=== PATIENT | female | born 1965 | race Caucasian/White ===

== ENCOUNTER 2020-11-25 18:21 | Emergency (ER) | payer MEDICAID ==
[~2020-11-25] VITALS: Ht 146.1 cm; Wt 56.2 kg
[2020-11-25 18:26] VITALS: BP 192/130
--- NOTE | 2020-11-25 18:44 | NUR ---
PATIENT AMBULATED TO BED 8.
--- NOTE | 2020-11-25 18:47 | NUR ---
Dr. George is evaluating the patient at bedside.
--- NOTE | 2020-11-25 18:50 | NUR ---
55 y/o F coming in from home with c/c abdominal pain x 3 days. Patient presents A&Ox4, ambulatory and Telugu speaking; states pain 8/10, sharp to her RLQ region. Patient states it radiates to the right flank. Pt denies takin any medications prior to arrival. Pt states associated nausea, chills and urinary frequency. Pt denies all other urinary complaints, chest pain, shortness of breath, dizziness, headache, blurry vision. Pt placed onto classroom monitor. Respirations even/unlabored; lung sounds CTA. Bed locked in lowest position, side rails x 1, call light in reach. PMH: HTN, DM, CVA x 1 year ago Meds: NKA Sx: denies
[2020-11-25] MEDS ORDERED: MORPHINE SULFATE 2 MG/ML SYR IVP ONE (18:55)
[2020-11-25] MEDS ORDERED: cefTRIAXone 1,000 MG in DEXT 5% MINI-BAG PLUS 50 ML IV ONE (18:55)
[2020-11-25] MEDS ORDERED: ONDANSETRON 4 MG/2 ML VIAL IVP ONE (18:55)
[2020-11-25] MEDS: NACL 0.9% 1,000 ML IV SCH ×2 (19:05→19:07)
--- NOTE | 2020-11-25 19:06 | NUR ---
Blood sample and cultures collected, handed to obi Bush tech in ER bedside.
[2020-11-25] MEDS ORDERED: cefTRIAXone 1,000 MG VIAL ONE (19:07)
--- NOTE | 2020-11-25 19:15 | NUR ---
Report and transfer of care given to YESSI Wright.
[2020-11-25 19:22] LABS: BASOPHILS % (AUTO) 0.7 % (0.0-2.0); EOSINOPHILS # (AUTO) 0.3 K/uL (0-0.4); EOSINOPHILS % (AUTO) 4.9 % (0.0-4.0); HEMATOCRIT 36.2 % (36-48); HEMOGLOBIN 12.6 g/dL (12.0-16.0); LYMPHOCYTES # (AUTO) 2.8 K/uL (2.5-16.5); LYMPHOCYTES % (AUTO) 43.5 % (20.5-51.1); MEAN CORPUSCULAR HEMOGLOBIN 30 pg (27-31); MEAN CORPUSCULAR HGB CONC 35 g/dL (33-37); MEAN CORPUSCULAR VOLUME 85.3 fL (80-94); MONOCYTES # (AUTO) 0.6 K/uL (0.8-1.0); MONOCYTES % (AUTO) 9.2 % (1.7-9.3); NEUTROPHILS # (AUTO) 2.7 K/uL (1.8-7.7); NEUTROPHILS % (AUTO) 41.7 % (42.2-75.2); PLATELET COUNT (AUTO) 314 K/uL (140-450); RED BLOOD CELL COUNT(AUTO) 4.25 MIL/uL (4.20-5.40); WHITE BLOOD COUNT (AUTO) 6.5 K/uL (4.8-10.8)
--- NOTE | 2020-11-25 19:25 | NUR ---
Signature obtained for consent form. CT made aware.
[2020-11-25 19:30] LABS: APPEARANCE,URINE CLEAR (CLEAR); BILIRUBIN,URINE NEGATIVE (NEGATIVE); BLOOD, URINE 2+ (NEGATIVE); COLOR,URINE YELLOW (YELLOW); LEUKOCYTE ESTERASE ,URINE TRACE (NEGATIVE); NITRITE, URINE POSITIVE (NEGATIVE); UGLUCOSE 3+ (NEGATIVE)
[2020-11-25 19:41] LABS: ALBUMIN 3.4 g/dL (3.4-5.0); CARBON DIOXIDE 30.9 mmol/L (21-32); CREATININE 1.1 mg/dL (0.6-1.3); POTASSIUM 3.9 mmol/L (3.5-5.1); TOTAL BILIRUBIN 0.4 mg/dL (0.0-1.0)
[2020-11-25 19:45] LABS: RBC,URINE 20-50 /HPF (0-5)
[2020-11-25] MEDS ORDERED: ONDA4ODT2 PO (21:37)
[2020-11-25] MEDS ORDERED: CEPH500C16 PO (21:37)
[2020-11-25 22:05] VITALS: BP 175/87
--- NOTE | 2020-11-25 22:05 | NUR ---
Patient discharged with v/s stable. Written and verbal after care instructions given and explained. Patient alert, oriented and verbalized understanding of instructions. Ambulatory with steady gait. All questions addressed prior to discharge. ID band removed. Patient advised to follow up with PMD. Rx of KEFLEX & ZOFRAN given. Patient educated on indication of medication including possible reaction and side effects. Opportunity to ask questions provided and answered.
--- NOTE | 2020-12-02 09:26 | NUR ---
LATE ENTRY -- NORMAL SALINE INFUSION COMPLETED AT 200411/25/20
== END 2020-11-25 22:05 | disposition home or self-care (01) ==
LOC: MED 18:21
DX: N12 Tubulo-interstitial nephritis, not specified as acute or chronic (principal); E11.9 Type 2 diabetes mellitus without complications; I10 Essential (primary) hypertension
CPT/HCPCS: 36415; 74177; 80053; 81001; 81025; 82150; 83605; 83690; 85025; 87040; 87086; 96365; 96375; 99285; J0696; J2270; J2405; J7030; J7060; Q9967; 96361

== ENCOUNTER 2024-03-26 13:05 | Inpatient (IN) | payer BC, MEDICAID, OTHER ==
[~2024-03-26] VITALS: Ht 146.1 cm; Wt 48.5 kg
[~2024-03-26 13:05] MED LIST: CEPH500C16 PO; ONDA-189 PO
[2024-03-26 13:09] VITALS: BP 122/65; PULSE 89; RESP 18; TEMP 97.2; O2SAT 97
[2024-03-26 13:49] LABS: BASOPHILS # (AUTO) 0.1 K/uL (0.00-0.22); BASOPHILS % (AUTO) 0.9 % (0.0-2.0); EOSINOPHILS # (AUTO) 0.4 K/uL (0-0.4); EOSINOPHILS % (AUTO) 5.6 % (0.0-4.0); HEMOGLOBIN 12.4 g/dL (12.0-16.0); LYMPHOCYTES # (AUTO) 2.1 K/uL (2.5-16.5); LYMPHOCYTES % (AUTO) 30.2 % (20.5-51.1); MEAN CORPUSCULAR HEMOGLOBIN 29 pg (27-31); MEAN CORPUSCULAR HGB CONC 34 g/dL (33-37); MEAN CORPUSCULAR VOLUME 83.2 fL (80-94); MONOCYTES # (AUTO) 0.7 K/uL (0.8-1.0); MONOCYTES % (AUTO) 10.3 % (1.7-9.3); NEUTROPHILS # (AUTO) 3.7 K/uL (1.8-7.7); PLATELET COUNT (AUTO) 333 K/uL (140-450); RED BLOOD CELL COUNT(AUTO) 4.33 MIL/uL (4.20-5.40); RED CELL DISTRIBUTION WIDTH 13.5 % (11.6-13.7); WHITE BLOOD COUNT (AUTO) 6.9 K/uL (4.8-10.8)
[2024-03-26 14:04] LABS: ANION GAP 7.3 (8-16); CALCIUM 8.9 mg/dL (8.5-10.1); CARBON DIOXIDE 31.6 mmol/L (21-32); CREATININE 1.7 mg/dL (0.6-1.3); POTASSIUM 3.9 mmol/L (3.5-5.1)
[2024-03-26 14:07] LABS: INR 0.91 (0.8-1.2); PARTIAL THROMBOPLASTIN TIME 24.2 secs (22-35.6); PROTHROMBIN TIME 9.6 secs (10.8-13.4)
[2024-03-26] MEDS: NACL 0.9% 500 ML IV ONE (14:16)
[2024-03-26 14:28] LABS: ALANINE AMINOTRANSFERASE 41 U/L (12-78); ALBUMIN 2.9 g/dL (3.4-5.0); ALKALINE PHOSPHATASE 259 U/L (50-136); ASPARTATE AMINOTRANSFERASE 36 U/L (15-37); BILIRUBIN,DIRECT 0.1 mg/dL (0.0-0.3); TOTAL BILIRUBIN 0.4 mg/dL (0.0-1.0); TOTAL PROTEIN, SERUM 7.8 g/dL (6.4-8.2)
[2024-03-26] MEDS: ASPIRIN 81 MG TAB.CHEW PO ONE (14:56)
[2024-03-26 16:05] LABS: BILIRUBIN,URINE NEGATIVE (NEGATIVE); BLOOD, URINE 1+ (NEGATIVE); COLOR,URINE YELLOW (YELLOW); LEUKOCYTE ESTERASE ,URINE TRACE (NEGATIVE); NITRITE, URINE NEGATIVE (NEGATIVE); PROTEIN,URINE 3+ (NEGATIVE); UGLUCOSE NEGATIVE (NEGATIVE); UROBILINOGEN,URINE 0.2 EU/dL (0.2 - 1)
[2024-03-26 16:07] LABS: APPEARANCE,URINE SLIGHTLY HAZY (CLEAR)
[2024-03-26 16:11] LABS: BACTERIA,URINE 1+ /HPF (None Seen); MUCUS,URINE None Seen /LPF (None Seen); SQUAMOUS EPITHELIAL CELL,UR 4-10 (MOD) /LPF (0-3 (FEW)); WBC,URINE 0-5 /HPF (0-5)
[2024-03-26] MEDS ORDERED: HYDROcodone/APAP 5/325 MG 1 TAB TAB PO PRN (18:45)
[2024-03-26] MEDS ORDERED: LORazepam 1 MG TAB PO PRN (18:45)
[2024-03-26] MEDS ORDERED: ONDANSETRON 4 MG/2 ML VIAL IVP PRN (18:45)
[2024-03-26] MEDS: NACL 0.9% 1,000 ML IV SCH (19:38)
[2024-03-26] MEDS: LOSARTAN 50 MG TAB PO SCH (19:41)
[2024-03-26] MEDS ORDERED: hydrALAZINE 20 MG/ML VIAL ONE (20:39)
[2024-03-26] MEDS ORDERED: hydrALAZINE 20 MG/ML VIAL IVP SCH (20:40)
[2024-03-26 22:00] VITALS: PULSE 85; RESP 18; O2SAT 99
[2024-03-26] MEDS ORDERED: DEXTROSE 50% 50 ML SYR IVP PRN (22:00)
[2024-03-26] MEDS: METOPROLOL 25 MG TAB PO SCH (22:46)
[2024-03-27 04:00] VITALS: BP 153/72; PULSE 79; RESP 18; TEMP 97.8; O2SAT 97
[2024-03-27 06:07] LABS: BASOPHILS % (AUTO) 0.6 % (0.0-2.0); EOSINOPHILS # (AUTO) 0.4 K/uL (0-0.4); EOSINOPHILS % (AUTO) 4.9 % (0.0-4.0); HEMATOCRIT 34.6 % (36-48); HEMOGLOBIN 11.8 g/dL (12.0-16.0); LYMPHOCYTES # (AUTO) 3.2 K/uL (2.5-16.5); LYMPHOCYTES % (AUTO) 39.2 % (20.5-51.1); MEAN CORPUSCULAR HEMOGLOBIN 29 pg (27-31); MEAN CORPUSCULAR HGB CONC 34 g/dL (33-37); MEAN CORPUSCULAR VOLUME 83.6 fL (80-94); MONOCYTES # (AUTO) 0.5 K/uL (0.8-1.0); MONOCYTES % (AUTO) 6.8 % (1.7-9.3); NEUTROPHILS # (AUTO) 3.9 K/uL (1.8-7.7); NEUTROPHILS % (AUTO) 48.5 % (42.2-75.2); PLATELET COUNT (AUTO) 300 K/uL (140-450); RED BLOOD CELL COUNT(AUTO) 4.13 MIL/uL (4.20-5.40); RED CELL DISTRIBUTION WIDTH 13.8 % (11.6-13.7); WHITE BLOOD COUNT (AUTO) 8.1 K/uL (4.8-10.8)
[2024-03-27 06:33] LABS: ALBUMIN 2.4 g/dL (3.4-5.0); CALCIUM 8.5 mg/dL (8.5-10.1); CARBON DIOXIDE 28.6 mmol/L (21-32); CREATININE 1.4 mg/dL (0.6-1.3); POTASSIUM 4.6 mmol/L (3.5-5.1); TOTAL BILIRUBIN 0.4 mg/dL (0.0-1.0); TOTAL PROTEIN, SERUM 6.6 g/dL (6.4-8.2)
[2024-03-27] MEDS: BLOOD GLUCOSE MONITORING 1 DEV DEV FS SCH (06:43)
[2024-03-27 08:00] VITALS: BP 145/77; PULSE 79; PULSE 80; RESP 18; RESP 19; TEMP 98.5; O2SAT 98
[2024-03-27] MEDS: DOCUSATE SODIUM 100 MG GELCAP PO SCH (09:00)
[2024-03-27] MEDS: ATORVASTATIN 80 MG TAB PO SCH (09:25)
[2024-03-27] MEDS: LOSARTAN 25 MG TAB PO SCH (09:25)
[2024-03-27] MEDS: ASPIRIN 81 MG TAB.CHEW PO SCH (09:25)
[2024-03-27] MEDS: PANTOPRAZOLE 40 MG INJ VIAL IVP SCH (09:27)
[2024-03-27 12:00] VITALS: BP 133/70; PULSE 76; PULSE 87; RESP 18; TEMP 97.2; O2SAT 98
[2024-03-27 16:00] VITALS: BP 130/75; PULSE 81; PULSE 85; RESP 18; TEMP 98; O2SAT 96
[2024-03-27] MEDS: INSULIN LISPRO SLIDING SCALE 100 UNITS/ML VIAL SUBQ PRN (17:59)
[2024-03-27 20:00] VITALS: BP 154/73; PULSE 88; RESP 18; TEMP 97.4; O2SAT 98
[2024-03-27] MEDS: ZOLPIDEM 5 MG TAB PO PRN (20:47)
[2024-03-28] VITALS: BP 159/67; PULSE 79; RESP 18; TEMP 97; O2SAT 96
[2024-03-28 04:00] VITALS: BP 175/83; PULSE 83; RESP 19; TEMP 97; O2SAT 97
[2024-03-28] MEDS: hydrALAZINE 20 MG/ML VIAL IVP PRN (04:37)
[2024-03-28 06:37] LABS: BASOPHILS # (AUTO) 0.1 K/uL (0.00-0.22); BASOPHILS % (AUTO) 0.7 % (0.0-2.0); EOSINOPHILS # (AUTO) 0.6 K/uL (0-0.4); EOSINOPHILS % (AUTO) 7.3 % (0.0-4.0); HEMATOCRIT 33.3 % (36-48); HEMOGLOBIN 11.4 g/dL (12.0-16.0); LYMPHOCYTES # (AUTO) 1.6 K/uL (2.5-16.5); LYMPHOCYTES % (AUTO) 20.4 % (20.5-51.1); MEAN CORPUSCULAR HEMOGLOBIN 29 pg (27-31); MEAN CORPUSCULAR HGB CONC 34 g/dL (33-37); MEAN CORPUSCULAR VOLUME 84.1 fL (80-94); MONOCYTES # (AUTO) 0.8 K/uL (0.8-1.0); MONOCYTES % (AUTO) 9.6 % (1.7-9.3); PLATELET COUNT (AUTO) 273 K/uL (140-450); RED BLOOD CELL COUNT(AUTO) 3.96 MIL/uL (4.20-5.40); RED CELL DISTRIBUTION WIDTH 13.7 % (11.6-13.7); WHITE BLOOD COUNT (AUTO) 8.1 K/uL (4.8-10.8)
[2024-03-28 07:10] LABS: ANION GAP 11.9 (8-16); CALCIUM 8.2 mg/dL (8.5-10.1); CARBON DIOXIDE 24.8 mmol/L (21-32); CREATININE 1.5 mg/dL (0.6-1.3); POTASSIUM 4.7 mmol/L (3.5-5.1)
[2024-03-28 08:00] VITALS: BP 130/71; PULSE 86; PULSE 94; RESP 17; TEMP 99.2; O2SAT 95
[2024-03-28] MEDS ORDERED: METO25TA PO (10:59)
[2024-03-28] MEDS ORDERED: LOSA-269 PO (10:59)
[2024-03-28 12:28] VITALS: BP 130/71; PULSE 86; RESP 17; TEMP 99.1
== END 2024-03-28 15:00 | disposition home or self-care (01) | DRG 469 ==
LOC: MED 13:05 → MTU 18:47
PROVIDERS: ADMIT Student in an Organized Health Care Education/Training Program; ATTEND Student in an Organized Health Care Education/Training Program
DX: N17.9 Acute kidney failure, unspecified (principal); E43 Unspecified severe protein-calorie malnutrition; G45.9 Transient cerebral ischemic attack, unspecified; I69.354 Hemiplegia and hemiparesis following cerebral infarction affecting left non-dominant side; E11.9 Type 2 diabetes mellitus without complications; I16.9 Hypertensive crisis, unspecified; E78.5 Hyperlipidemia, unspecified; I10 Essential (primary) hypertension; Z79.899 Other long term (current) drug therapy
CPT/HCPCS: 36415; 70450; 71045; 80048; 80053; 80076; 81001; 82948; 83036; 83880; 84484; 85025; 85610; 85730; 87081; 92526; 93005; 93880; 96360; 97116; 97163-GP; 97530; 99285; J0360; J1815; J2470; Q0092; Q9967